=== PATIENT | female | born 1945 | race Caucasian/White ===

== ENCOUNTER 2023-06-21 22:14 | Emergency (ER) | payer MEDICARE, OTHER ==
[~2023-06-21] VITALS: Ht 162.6 cm; Wt 98.2 kg
[2023-06-22 02:31] VITALS: TEMP 98.8
[2023-06-22] MEDS ORDERED: ketorolac trometh inj. 60 MG/2 ML VIAL IM ONE (03:05)
[2023-06-22] MEDS ORDERED: acetaminophen 325mg tablet PO ONE (03:05)
[2023-06-22] MEDS ORDERED: LIDOCAINE 1%/EPI 1:100,000 inj. 10 ML multi-dose vial IJ ONE (03:05)
[2023-06-22] MEDS ORDERED: BUPIVAcaine/PF 2.5mg/ml (0.25%) 10ml vial IJ ONE (03:05)
[2023-06-22] MEDS ORDERED: orphenadrine citrate 60mg/2ml inj. IM ONE (03:05)
[2023-06-22] MEDS ORDERED: traMADol 50MG tablet PO ONE (03:35)
[2023-06-22] MEDS ORDERED: TRAM50TA2 PO (03:39)
[2023-06-22] MEDS ORDERED: CYCL-1 PO (03:39)
[2023-06-22 04:01] VITALS: BP 142/78; PULSE 78; RESP 14; O2SAT 99
== END 2023-06-22 04:03 | disposition home or self-care (01) ==
LOC: ER 22:15
DX: M43.6 Torticollis (principal); K21.9 Gastro-esophageal reflux disease without esophagitis; Z88.1 Allergy status to other antibiotic agents; Z88.0 Allergy status to penicillin; Z72.89 Other problems related to lifestyle
CPT/HCPCS: 20552; 96372; 99284; J1885; J2360